=== PATIENT | female | born 1980 | race Caucasian/White ===

== ENCOUNTER 2025-04-13 09:38 | Outpatient (AMB) | payer OTHER, SELFPAY ==
--- NOTE | 2025-04-13 09:44 | A.OFFPC_ITS ---
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 Accompanied by: Self / Same As Patient Allergies acetaminophen (From NYQUIL) Allergy (Unknown, Verified 04/13/25 09:45) RASH doxylamine (From NYQUIL) Allergy (Unknown, Verified 04/13/25 09:45) RASH penicillin V Allergy (Unknown, Verified 04/13/25 09:45) Rash Penicillins (PENICILLINS) Allergy (Unknown, Verified 04/13/25 09:45) RASH- Benadryl Allergy (Unknown, Uncoded 04/13/25 09:45) Rash From BENADRYL Allergy (Unknown, Uncoded 06/24/20 14:49) RASH From NYQUIL Allergy (Unknown, Uncoded 06/24/20 14:49) RASH NyQuil Allergy (Unknown, Uncoded 04/13/25 09:45) Rash Medication List - Last Reconciled 04/13/25 by MARIA ELENA Davies ascorbic acid (vitamin C) 500 mg PO DAILY loratadine (Claritin) 10 mg PO DAILY multivitamin 1 tab PO DAILY HPI HPI Comments History of Present Illness Details A 44-year-old female with history of seasonal allergies presents to the office today for annual physical exam and to establish care. She lives at home with her and 2 children and feels safe there. 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 She will have the summer off. She reports only occasional alcohol use. No history of cigarette smoking. No illicit drug use or marijuana use. She reports she is exercising by walking but acknowledges she could be doing more for exercise. Currently involved with a program with her son which she feels is helping with motivation. She does follow a healthy diet overall. Concerns: Looking for a referral to Dermatology for skin check Onychomycosis-history of previously managed with fluconazole. Not interested in ciclopirox due to failed therapy in the past Health maintenance: Follows with [facility] Last Pap smear 12/2020 negative for neoplasm or HPV Last mammogram 12/2024 without evidence of malignancy, 1 year follow-up advised Endometrial biopsy negative for neoplasm-family history of endometrial cancer in her mother Colonoscopy to start at age 44 Reviewed past medical, surgical, family, social history ROS: General: No fevers, malaise, unintentional weight loss HEENT: No blurred vision, diplopia. No sore throat, nasal congestion, rhinorrhea, sinus pain, ear pain. No hearing loss Neck - no adenopathy Cardiovascular: No chest pain, palpitations, or leg edema Respiratory: No shortness of breath, wheezing, cough Breast: No pain, palpable lumps, nipple inversion GI: No dysphagia, odynophagia, globus sensation. No abdominal pain, nausea, vomiting, diarrhea, constipation, melena, hematochezia : No dysuria, hematuria, increased urinary frequency, decreased urinary output. 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 No AH/VH. No SI/HI Skin: No rashes or lesions. see hpi EXAM: Constitutional - Awake and Alert, No apparent distress Eyes - PERRLA, EOMI. Anicteric Ears - external ears normal, canals clear, TMs intact and pearly pitts with good cone of light Nose- septum midline, nares clear, no sinus tenderness Mouth/throat- mucosa moist, tongue and uvula midline, no erythema/edema or tonsillar adenopathy. Neck-trachea midline, thyroid symmetric without palpable nodules, no adenopathy Cardiovascular - S1S2, RRR, No edema Respiratory - Normal lung expansion, Normal respiratory effort, No respiratory distress, CTA bilaterally Gastrointestinal - NT / ND; +BS; No rebound or guarding - No CVA tenderness Extremities - no calf tenderness bilaterally, no swelling Musculoskeletal - Normal inspection, normal ROM Skin - Warm/Dry, no concerning lesions Neurological - Alert & oriented x3, CN II-XII in tact, 5/5 strength BUE and BLE, 2+ patellar reflexes, sensation intact Psychological - Appropriate affect [facility] Medical History (Updated 04/13/25 @ 10:15 by MARIA ELENA Davies) Onychomycosis Ruptured ear drum Seasonal allergies Surgical History (Updated 04/13/25 @ 10:07 by MARIA ELENA Davies) History of endometrial biopsy S/P section Family History (Updated 04/13/25 @ 10:08 by MARIA ELENA Davies) Father Crohn disease S/P ileostomy Hx of CABG CAD (coronary artery disease) Mother Endometrial cancer Myasthenia gravis Questionnaire PHQ-9 Over the last 2 weeks, how often have you been bothered by any of the following problems? 1. Little interest or pleasure in doing things: not at all 2. Feeling down, depressed, or hopeless: not at all 3. Trouble falling or staying asleep, or sleeping too much: not at all 4. Feeling tired or having little energy: not at all 5. Poor appetite or overeating: not at all 6. Feeling bad about yourself - or that you are a failure or have let yourself or your family down: not at all 7. Trouble concentrating on things, such as reading the newspaper or watching television: not at all 8. Moving or speaking so slowly that other people could have noticed. Or the opposite - being so fidgety or restless that you have been moving around a lot more than usual: not at all 9. Thoughts that you would be better off or of hurting yourself in some way: not at all Total score: 0 Source: Developed by Drs. Pete Hooker, Glory Hill, Gold Boateng and colleagues, with an educational abdulaziz from [employer]. Thrive Questionnaire Date Thrive assessed: 04/13/25 I am a: Patient What is your living situation today?: I have a steady place to live Within the past 12 months, did the food you bought not last and you didn't have the money to get more?: Never true Within the past 12 months, did you worry whether your food would run out before you got money to buy more?: Never true Do you have trouble paying for medicines?: No Do you have trouble getting transportation to medical appointments?: No Do you have trouble paying your heating and electricity bill?: No Do you have trouble taking care of your child, family member or friend?: No Do you have trouble with day-to-day activities such as bathing, preparing meals, shopping, managing finances, etc.?: No Are you currently unemployed and looking for a job?: No Are you interested in more education?: No THRIVE Score: 0 MITCHELL-7 AMB Questionnaire MITCHELL-7 Date MITCHELL - 7 assessed: 04/13/25 Feeling nervous, anxious, or on edge: 1 = Several days Not being able to stop or control worryin = Not at all Worrying too much about different things: 1 = Several days Trouble relaxin = Not at all Being so restless that it is hard to sit still: 0 = Not at all Becoming easily annoyed or irritable: 0 = Not at all Feeling afraid as if something awful might happen: 0 = Not at all Total MITCHELL-7 score (0-4 normal; 5-9 mild; 10-14 moderate; 15-21 severe): 2 Source: Developed by Drs. Pete Hooker, Glory Hill, Gold Boateng and colleagues, with an educational abdulaziz from [employer]. Physical exam (Primary Care) Vital Signs: Last Vital Signs Temp 98.2 F 04/13/25 09:48 Pulse 104 H 04/13/25 09:48 Resp 16 04/13/25 09:48 BP 130/90 H 04/13/25 09:48 Pulse Ox 99 04/13/25 09:48 Oxygen Delivery Method Room Air 04/13/25 09:48 BMI result Body Mass Index 41.8 PHQ-9: PHQ-9 Score PHQ-9: Total score 0 04/13/25 10:36 Thrive Assessment: Date of Thrive Assessment Date Thrive assessed 04/13/25 04/13/25 10:36 Coding Level of Care Code New Pt Prev Care 40-64y(15899) Diagnoses Encounter for routine history and physical examination Z00.00 Onychomycosis B35.1 Assessment & Plan Assessment & Plan (1) Encounter for routine history and physical examination: Code(s): Z00.00 - Encounter for general adult medical examination without abnormal findings Plan: 44-year-old female presenting to the office for annual physical exam. Plan as below. (2) Onychomycosis: Code(s): B35.1 - Tinea unguium Category: Medical Plan: She is not interested in cycle prior ox at this time as has not been effective in the past. Referred to Dermatology. Plan Routine screening labs as ordered below Continue with screening mammograms, Pap smears. Colonoscopies to start at age 45 Continue following for annual skin exams and use sun protection. Referred for skin exam in Dermatology Annual eye exams Wear seat belt in car Recommend regular exercise and healthy diet Orders: Orders Complete Blood Count Auto Diff Today Z00.00 - Encounter for general adult medical examination without abnormal findings Hemoglobin A1c Today Z00.00 - Encounter for general adult medical examination without abnormal findings Lipid Panel Today Z00.00 - Encounter for general adult medical examination without abnormal findings Vitamin D 25-OH Total Today Z00.00 - Encounter for general adult medical examination without abnormal findings Basic Metabolic Panel Today Z00.00 - Encounter for general adult medical examination without abnormal findings Liver Panel Today Z00.00 - Encounter for general adult medical examination without abnormal findings TSH reflex Free T4 Today Z00.00 - Encounter for general adult medical examination without abnormal findings Referrals Dermatology Referral B35.1 - Tinea unguium, Z12.83 - Encounter for screening for malignant neoplasm of skin
[2025-04-13 09:48] VITALS: BP 130/90; PULSE 104; RESP 16; TEMP 36.8; O2SAT 99; BMI 41.8
== END 2025-04-13 14:38 | disposition home or self-care (01) ==
PROVIDERS: PCP Internal Medicine; Visit Provider Physician Assistant
DX: Z00.00 Encounter for general adult medical examination without abnormal findings (principal); B35.1 Tinea unguium